=== PATIENT | female | born 1950 | race Caucasian/White ===

== ENCOUNTER → 2017-01-22 | Outpatient (CLI) | payer BC, MEDICARE, OTHER ==
[~2017-01-22] MED LIST: ASCORBIC ACID500 MG PO; ASPIRIN EC81 MG PO; BENICAR HCT 201 EACH PO; CALCIUM 1,0001 EACH PO; CALCIUM600 MG PO; CINNAMON500 MG PO; CITRACAL+D(315M1 TAB PO; CLARITIN10 MG PO; COQ-10100 MG PO; DELTASONE10 MG PO; FISH OIL 1,2001 EACH PO; FLOVENT 110 M110 MCG INH; GINKGO BILOBA30 MG PO; GLUCOSAMINE 50500 MG PO; HUMIBID LA (MU600 MG PO; METAMUCIL CAPSU1 CAP PO; THERAGRAN-M1 TAB PO; TOPROL XL25 MG PO; TRICOR145 MG PO; TYLENOL ARTHRI650 MG PO; VERAMYST10 GM NOSE; VITAMIN B12-FO1 EACH PO; VITAMIN D31000 UNIT PO; VITAMIN E400 UNI1 PO; ZYRTEC10 M1 PO; ZYRTEC10 MG PO
== END | disposition disaster alternative care site (69) ==
LOC: GBCOE 09:16
DX: Z12.31 Encounter for screening mammogram for malignant neoplasm of breast (principal); R92.1 Mammographic calcification found on diagnostic imaging of breast; Z85.3 Personal history of malignant neoplasm of breast; Z98.890 Other specified postprocedural states
CPT/HCPCS: G0202

== ENCOUNTER → 2017-01-24 | Outpatient (CLI) | payer BC, MEDICARE, OTHER | LOC: GBCOE 15:00 | DX: R92.1 Mammographic calcification found on diagnostic imaging of breast (principal); D05.11 Intraductal carcinoma in situ of right breast | CPT/HCPCS: G0206; G0279 ==